=== PATIENT | female | born 1990 | race Caucasian/White ===

== ENCOUNTER 2020-04-09 17:43 | Outpatient (REF) | payer OTHER, SELFPAY ==
--- NOTE | ~2020-04-09 | MR_ITS ---
EXAMINATION: MR BRAIN WITHOUT AND WITH CONTRAST CLINICAL INFORMATION: Complex partial seizures COMPARISON: None TECHNIQUE: Multiplanar, multisequence MRI of the brain was obtained before and after the intravenous administration of 6.5 mL Gadavist. FINDINGS: Normal No focal reduced diffusion is seen to suggest acute or subacute cerebral ischemia. No intracranial mass, intracerebral edema, intra-axial blood products, midline shift, or extra-axial collection is visualized. There is normal symmetry of bilateral temporal horn lateral ventricle, mesial temporal lobe and gyral cortex. No abnormal signal or enhancement visualized in the temporal lobe. No pathologic enhancement is appreciated on postcontrast sequences. The ventricles and sulcal spaces appear normal. Normal arterial and venous vascular flow voids are present. Postcontrast is normal enhancement in the major cerebral vasculature and the sinuses. The paranasal sinuses are well aerated. MR/MR head/brain wo/w con IMPRESSION: Unremarkable MRI brain with and without contrast.
== END 2020-04-09 17:44 | disposition home or self-care (01) ==
LOC: HO.MRI 17:43
PROVIDERS: Visit Provider Psychiatry & Neurology Neurology
DX: G40.209 Localization-related (focal) (partial) symptomatic epilepsy and epileptic syndromes with complex partial seizures, not intractable, without status epilepticus (principal)
CPT/HCPCS: 70553; A9585

== ENCOUNTER 2020-09-04 17:36 | Outpatient (REF) | payer OTHER, SELFPAY ==
--- NOTE | ~2020-09-04 | MR_ITS ---
EXAMINATION: MR BRAIN WITHOUT AND WITH CONTRAST CLINICAL INFORMATION: Complex partial seizure disorder. COMPARISON: MRI brain 04/09/2020 TECHNIQUE: Multiplanar, multisequence MRI of the brain was obtained before and after the intravenous administration of 6.5 mL Gadavist. Seizure protocol sequences are obtained. FINDINGS: No intracranial hemorrhage, tumors or infarcts are noted. The ventricles and sulci are normal in size and configuration, and no focal parenchymal lesions of the brain are identified. The craniocervical junction and cerebellar tonsils are normal in configuration. Incidental note is made of mild hyperostosis frontalis interna. No suspicious marrow abnormalities are visualized. Susceptibility-weighted images reveal no evidence of acute or chronic hemorrhage within the brain parenchyma. Coronal FLAIR and T2 FSE images demonstrate normal appearance of the hippocampal formations. The hypothalamus is normal in appearance. Normal flow-related signal intensity is identified in the major intracranial vessels and dural sinuses. No abnormal enhancement of the brain parenchyma is visualized. No significant mucosal thickening or retained secretions are noted within the paranasal sinuses, mastoid air cells and middle ear cavities. The orbits and globes are normal in appearance. MR/MR head/brain wo/w con IMPRESSION: Normal unenhanced and IV contrast-enhanced seizure protocol MRI of the brain.
== END 2020-09-04 17:37 | disposition home or self-care (01) ==
LOC: HO.MRI 17:36
PROVIDERS: PCP Internal Medicine; Visit Provider Psychiatry & Neurology Neurology
DX: G40.209 Localization-related (focal) (partial) symptomatic epilepsy and epileptic syndromes with complex partial seizures, not intractable, without status epilepticus (principal)
CPT/HCPCS: 70553; A9585